=== PATIENT | female | born 1945 | race Caucasian/White ===

== ENCOUNTER 2016-06-13 10:55 | Outpatient (CLI) | payer MEDICARE, OTHER | END 2016-06-13 10:56 | disposition home or self-care (01) | DX: Z12.31 Encounter for screening mammogram for malignant neoplasm of breast (principal) ==

== ENCOUNTER 2018-05-18 11:13 | Outpatient (CLI) | payer MEDICARE, OTHER | END 2018-05-18 11:14 | disposition EMS.NT | LOC: EMS 11:13 | PROVIDERS: ATTEND Surgery | DX: R55 Syncope and collapse (principal); I95.9 Hypotension, unspecified ==

== ENCOUNTER 2020-06-18 13:09 | Outpatient (CLI) | payer MEDICARE, OTHER ==
--- NOTE | 2020-06-19 12:30 | Mammography Report ---
BILATERAL DIGITAL SCREENING MAMMOGRAM 3D/2D: 06/18/2020 CLINICAL: Routine screening. Comparison is made to exams dated: 06/13/2016 mammogram and 08/16/2014 mammogram - [facility]. The tissue of both breasts is predominantly fatty. No significant masses, calcifications, or other findings are seen in either breast. There has been no significant interval change. IMPRESSION: NEGATIVE There is no mammographic evidence of malignancy. A 1 year screening mammogram is recommended. This exam was interpreted at Station ID: [id number]. NOTE: For mammograms, a report in lay terms will be sent to the patient. Approximately 15% of breast malignancies will not be visualized mammographically. In the management of a palpable breast mass, a negative mammogram must not discourage biopsy of a clinically suspicious lesion. Electronically Signed By: Gallo Hood M.D., jr/rahel:06/18/2020 13:56:36 ACR BI-RADS Category 1: Negative 3341F PARENCHYMAL PATTERN: (F) - The breast(s) demonstrate(s) diffuse fatty replacement. BI-RADS CATEGORY: (1) - 1 RECOMMENDATION: (ANNUAL) - Recommend routine annual screening mammography. [id number] 1 year screening LATERALITY: (B)
== END 2020-06-18 13:10 | disposition home or self-care (01) ==
LOC: DI.N 13:09
DX: Z12.31 Encounter for screening mammogram for malignant neoplasm of breast (principal)

== ENCOUNTER 2020-08-27 10:47 | Outpatient (CLI) | payer MEDICARE, OTHER ==
[2020-08-27 11:11] LABS: HCT - HEMATOCRIT 39.7 % (37.0-47.0); HGB - HEMOGLOBIN 13.8 g/dL (12.0-16.0); MEAN CORPUSCULAR HGB CONC 34.8 g/dL (32.0-36.0); MEAN CORPUSCULAR VOLUME 89.2 fL (81.0-99.0); MEAN PLATELET VOLUME 9.7 fL (7.9-10.8); RED BLOOD COUNT 4.45 10^6/uL (4.20-5.40); RED CELL DISTRIBUTION WIDTH 13.4 % (12.0-15.0); WHITE BLOOD COUNT 7.5 x10^3/uL (4.8-10.8)
[2020-08-27 11:20] LABS: CALCIUM 9.9 mg/dL (8.5-10.3); CREATININE 0.6 mg/dL (0.4-1.0); POTASSIUM 4.4 mmol/L (3.5-5.0)
[2020-08-27 14:06] LABS: CREATININE,URINE 36.3 mg/dL
[2020-08-27 14:07] LABS: TOTAL PROTEIN,URINE TIMED < 6 mg/dL
== END 2020-08-27 10:48 | disposition home or self-care (01) ==
LOC: LAB 10:47
PROVIDERS: ATTEND Internal Medicine Nephrology
DX: N05.9 Unspecified nephritic syndrome with unspecified morphologic changes (principal); D70.9 Neutropenia, unspecified; R80.9 Proteinuria, unspecified; D63.1 Anemia in chronic kidney disease
CPT/HCPCS: 36415; 80048; 82570; 84156; 85027

== ENCOUNTER 2020-10-03 13:24 | Outpatient (CLI) | payer MEDICARE, OTHER ==
--- NOTE | 2020-10-03 14:55 | XRAY Report ---
PROCEDURE: Chest 2 View X-Ray INDICATIONS: DYSPNEA TECHNIQUE: 2 view(s) of the chest. COMPARISON: None. FINDINGS: Surgical changes and devices: None. Lungs and pleura: No pleural effusions or pneumothorax. At the medial right upper lobe there is a s uspected lung mass, measuring approximately 1 cm transverse and 1.8 cm craniocaudad. This is located at the medial interspace on the frontal view between the third and fourth ribs posteriorly. Lungs are possibly hyperexpanded, versus aggressive inspiratory effort.. Mediastinum: Mediastinal contours are normal. Heart size is normal. Bones and chest wall: No suspicious bony abnormalities. Soft tissues appear unremarkable. IMPRESSION: There is a focal radiodensity at the medial right lung apex potentially a mass lesion me asuring up to 1.0 x 1.8 cm. This is located in an area that is relatively poorly seen by plain film b ut follow-up by CT scanning, either with contrast or without contrast, is recommended for more accura te assessment Reviewed by: Nils Lawler MD on 10/03/2020 2:53 PM PDT Approved by: Nils Lawler MD on 10/03/2020 2:53 PM PDT Station ID: [id number]
== END 2020-10-03 13:25 | disposition home or self-care (01) ==
LOC: DI 13:24
PROVIDERS: ATTEND Internal Medicine Nephrology
DX: R06.00 Dyspnea, unspecified (principal); E87.1 Hypo-osmolality and hyponatremia
CPT/HCPCS: 36415; 83930; 83935; 84443

== ENCOUNTER 2020-10-06 07:00 | Outpatient (CLI) | payer MEDICARE, OTHER | END 2020-10-06 23:59 | disposition home or self-care (01) | LOC: LAB.R 07:00 | PROVIDERS: ATTEND Internal Medicine Nephrology | DX: N05.9 Unspecified nephritic syndrome with unspecified morphologic changes (principal); N18.9 Chronic kidney disease, unspecified; E87.1 Hypo-osmolality and hyponatremia | CPT/HCPCS: 81599; 84540 ==

== ENCOUNTER 2020-10-18 10:18 | Outpatient (CLI) | payer MEDICARE, OTHER ==
[2020-10-18 11:01] LABS: CREATININE 0.6 mg/dL (0.4-1.0)
== END 2020-10-18 10:19 | disposition home or self-care (01) ==
LOC: LAB 10:18
PROVIDERS: ATTEND Internal Medicine Nephrology
DX: N05.9 Unspecified nephritic syndrome with unspecified morphologic changes (principal)
CPT/HCPCS: 36415; 82565